=== PATIENT | male | born 1985 | race Caucasian/White ===

== ENCOUNTER 2017-02-23 18:08 | Emergency (ER) | payer OTHER ==
[2017-02-23 20:15] LABS: Basophils % (Auto) 1.5 % (0.0-1.8); Eosinophils % (Auto) 0.7 % (0.0-4.3); Hemoglobin 15.8 gm/dl (11.8-15.2); Mean Corpuscular HGB Conc 34 % (32-34); Mean Corpuscular Hemoglobin 31 pg (28-32); Mean Corpuscular Volume 89 fl (84-94); Platelet Count 236 K/mm3 (140-440); Red Blood Count 5.19 M/mm3 (3.65-5.03); Red Cell Distribution Width 13.9 % (13.2-15.2); White Blood Count 14.8 K/mm3 (4.5-11.0)
[2017-02-23 20:46] LABS: Anion Gap 20 mmol/L; Blood Urea Nitrogen 11 mg/dL (9-20); Carbon Dioxide 23 mmol/L (22-30); Chloride 102.3 mmol/L (98-107); Glucose 99 mg/dL (75-100); Potassium 3.9 mmol/L (3.6-5.0); Sodium 141 mmol/L (137-145)
[2017-02-23 23:20] LABS: Urine Drugs of Abuse Note Disclamer
[2017-02-23 23:51] LABS: Bilirubin,Urine NEG (Negative); Blood,Urine NEG (Negative); Ketones,Urine TR mg/dL (Negative); Leukocyte Esterase,Urine NEG (Negative); Mucus,Urine 2+ /HPF; Nitrite,Urine NEG (Negative); Urobilinogen,Urine < 2.0 mg/dL (<2.0)
--- NOTE | 2017-02-23 23:56 | Emergency Department Report ---
HPI - General Chief Complaint: Psych Time Seen by Provider: 02/23/17 23:10 - HPI HPI: This is a 31-year-old male presents to the emergency department with complaint of auditory hallucinations and suicidal ideations. He says that he has been feeling suicidal for about 24 hours but has been hearing voices for the past 10 years or so. However he denies any diagnosis psychiatric history. He says he would have a plan to overdose on something in order to harm himself. He denies any homicidal ideations or visual hallucinations. No recent travel or sick contacts at home. He denies any past medical history. ED Past Medical Hx - Past Medical History Previous Medical History?: Yes Hx Psychiatric Treatment: Yes - Social History Smoking Status: Current Every Day Smoker Substance Use Type: None ED Review of Systems ROS: Stated complaint: SUICIDAL THOUGHTS,HEARING VOICES Other details as noted in HPI Comment: All other systems reviewed and negative Constitutional: denies: chills, fever Eyes: denies: eye pain, eye discharge, vision change ENT: denies: ear pain, throat pain Respiratory: denies: cough, shortness of breath, wheezing Cardiovascular: denies: chest pain, palpitations Gastrointestinal: denies: abdominal pain, nausea, diarrhea Genitourinary: denies: urgency, dysuria Musculoskeletal: denies: back pain, joint swelling, arthralgia Skin: denies: rash, lesions Neurological: denies: headache, weakness, paresthesias Psychiatric: auditory hallucinations, suicidal thoughts. denies: visual hallucinations, homicidal thoughts Physical Exam - Physical Exam Vital Signs: Vital Signs 02/23/17 19:49 Temperature 98.6 F Pulse Rate 97 H Respiratory 18 Rate Blood Pressure 152/85 O2 Sat by Pulse 98 Oximetry Physical Exam: GENERAL: The patient is well-developed well-nourished. HENT: Normocephalic. Atraumatic. Patient has moist mucous membranes. EYES: Extraocular motions are intact. Pupils equal reactive to light bilaterally. NECK: Supple. Trachea is midline. CHEST/LUNGS: Clear to auscultation. There is no respiratory distress noted. HEART/CARDIOVASCULAR: Regular. There is no tachycardia. There is no gallop rub or murmur. ABDOMEN: Abdomen is soft, nontender. Patient has normal bowel sounds. There is no abdominal distention. SKIN: Skin is warm and dry. NEURO: The patient is awake, alert, and oriented. The patient is cooperative. The patient has no focal neurologic deficits. The patient has normal speech. MUSCULOSKELETAL: There is no tenderness or deformity. There is no limitation range of motion. There is no evidence of acute injury. ED Course Vital Signs 02/23/17 19:49 Temperature 98.6 F Pulse Rate 97 H Respiratory 18 Rate Blood Pressure 152/85 O2 Sat by Pulse 98 Oximetry ED Medical Decision Making - Lab Data Result diagrams: 02/23/17 19:59 02/23/17 19:59 - Medical Decision Making 31-year-old male presents with chronic auditory hallucinations and more recent suicidal ideations. For this reason he has been made a 1013. Vital signs stable throughout his ED course. He has a mild leukocytosis but it is most likely reactive versus infectious. He does have 11 white blood cells in the urine but there is negative leukocyte esterase and nitrates. The rest of the labs are mostly unremarkable. He appears medically cleared for psychiatric placement. - Differential Diagnosis schizophrenia, bipolar disorder, substance abuse Critical Care Time: No Critical care attestation.: If time is entered above; I have spent that time in minutes in the direct care of this critically ill patient, excluding procedure time. ED Disposition Clinical Impression: Suicidal ideations Disposition: [id number]/TX-65 PSY HOSP/PSY UNIT Is pt being admited?: No Condition: Stable Referrals: KEVON MILLER MD [Primary Care Provider] - 3-5 Days Time of Disposition: 01:48
--- NOTE | 2017-02-24 13:25 | Consultation ---
History of Present Illness - Reason for Consult Consult date: 02/24/17 Reason for consult: Mental Health Evaluation Requesting physician: MANI NARAYAN - Chief Complaint Chief complaint: "I hear voices" - History of Present Psychiatric Illness This is a 31-year-old male presents to the emergency department with complaint of auditory hallucinations and suicidal ideations. Today patient is calm and cooperative during the assessment. He stated that he hear voices to tell him to kill himself the last couple days. He stated that he been hearing "command voices" for the past 10 10 years. He stated that he moved here from [place], [place] and been homeless the entire time. When asked to elaborate about his SI's, he could not explain why other than saying, "The voices are telling me to kill myself." He endorses a suicide plan by overdose. He stated that he has attempted suicide in the past because of the "voices." He stated that he smoke marijuana for recreational purposes. He denies HI's and VH' s. He stated that his sleep have been erratic, but denies a poor appetite. He denies excessive alcohol consumption (etoh). Patient stated that he took Zyprexa and Depakote in the past. He stated that these medications "worked." Medications and Allergies Allergies Allergy/AdvReac Type Severity Reaction Status Date / Time No Known Allergies Allergy Unverified 02/23/17 19:49 Past psychiatric history - Past Medical History Past Medical History: No medical history Past Surgical History: No surgical history - past Psychiatric treatment and history Psych: Schizophrenia psychiatric treatment history: Multiple inpatient psy settings. Denies a fam psy hx. - Social History Social history: other (9th grade education) Mental Status Exam - Vital signs Last Vital Signs Temp 98.6 F 02/23/17 19:49 Pulse 97 H 02/23/17 19:49 Resp 18 02/23/17 19:49 BP 152/85 02/23/17 19:49 Pulse Ox 98 02/23/17 19:49 - Exam Narrative exam: ROS: (+) psychotic MSE: Appearance: calm, cooperative Behavior: regular eye contact Speech: regular rate and tone Mood: "not feeling well" Affect: labile Thought Process: circumstantial Thought Content: denies HI's, and VH's Motor Activity: ambulatory Cognition: A/O x3 Insight: limited Judgment: limited Results Result Diagrams: 02/23/17 19:59 02/23/17 19:59 Abnormal lab results 02/23/17 02/23/17 Range/Units 19:59 22:44 WBC 14.8 H (4.5-11.0) K/mm3 RBC 5.19 H (3.65-5.03) M/mm3 Hgb 15.8 H (11.8-15.2) gm/dl Hct 46.0 H (35.5-45.6) % Edwards % (Auto) 12.0 H (0.0-7.3) % Edwards # 1.8 H (0.0-0.8) K/mm3 Baso # 0.2 H (0.0-0.1) K/mm3 Seg Neutrophils # 8.5 H (1.8-7.7) K/mm3 Ur Specific [place] 1.031 H (1.003-1.030) Urine WBC (Auto) 11.0 H (0.0-6.0) /HPF All other labs normal. 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 Unspecified Mood DO with psychotic features. Substance Use DO (marijuana). Today patient is calm and cooperative during the assessment. Patient experiencing AH's. DDx: R/O Bipolar Recommendation/Plan: Continue 1013 with placement to inpatient psy services. Start Depakote 500 mg PO BID, Zyprexa 5 mg PO HS for mood/psychotic symptoms, and Cogentin 0.5 mg PO HS for EPS prevention.
[2017-02-24 16:37] LABS: Alanine Aminotransferase 26 units/L (7-56); Alkaline Phosphatase 69 units/L (35-129)
[2017-02-24] MEDS: COGENTIN PO SCH (22:23)
--- NOTE | 2017-02-25 13:30 | Progress Note ---
Subjective - Reason for Consult Consult date: 02/25/17 Reason for consult: Psychiatry Follow-up - Chief Complaint Chief complaint: "The voices" This is a 31-year-old male presents to the emergency department with complaint of auditory hallucinations and suicidal ideations. Today patient is calm and cooperative during the assessment. He stated that he want the voices to cease. He stated that the voices have always been an issue, but sometimes he can tolerate them. Per the patient, the voices decreases when his sleep isn't disturbed. He stated that he didn't sleep well last night because of the noise in the ER. He still endorses SI's with a plan to overdose. He denies HI's and VH's. He denies any side effects of his medications. Mental Status Exam - Vital signs Last Vital Signs Temp 98 F 02/24/17 19:51 Pulse 77 02/24/17 19:51 Resp 18 02/25/17 12:02 BP 103/68 02/24/17 19:51 Pulse Ox 99 02/25/17 12:02 - Exam Narrative exam: MSE: Appearance: calm, cooperative Behavior: regular eye contact Speech: regular rate and tone Mood: "okay" Affect: labile Thought Process: circumstantial Thought Content: denies HI's, and VH's Motor Activity: ambulatory Cognition: A/O x3 Insight: limited Judgment: limited Assessment and Plan Impression: Historical Dx: Schizophrenia vs Schizoaffective DO. Unspecified Mood DO with psychotic features. Substance Use DO (marijuana). Today patient is calm and cooperative during the assessment. Patient experiencing SI's and AH's. DDx: R/O Bipolar Recommendation/Plan: Continue 1013 with placement to inpatient psy services. Continue Depakote 500 mg PO BID, Zyprexa 5 mg PO HS for mood/psychotic symptoms , and Cogentin 0.5 mg PO HS for EPS prevention. Discussed possible metabolic side effects of Zyprexa with patient.
[2017-02-25] MEDS: COGENTIN PO SCH (21:53)
[2017-02-26] MEDS: COGENTIN PO SCH ×2 (14:02→22:18)
[2017-02-27] MEDS: COGENTIN PO SCH (23:49)
--- NOTE | 2017-02-28 13:24 | Progress Note ---
Subjective - Reason for Consult Consult date: 02/28/17 Reason for consult: Psychiatry Follow-up - Chief Complaint Chief complaint: "The voices have not stopped" This is a 31-year-old male presents to the emergency department with complaint of auditory hallucinations and suicidal ideations. Today patient is calm and cooperative during the assessment. He stated that the voices have not ceased. He stated that he was hearing voices earlier to today telling him to kill himself. Again, patient is adamant about wanting the voices to stop. He denies HI's and VH's. He denies sleep disturbance and a poor appetite. He denies any side effects of his medications. Mental Status Exam - Vital signs Last Vital Signs Temp 98.3 F 02/26/17 07:38 Pulse 87 02/28/17 10:14 Resp 17 02/28/17 10:14 BP 120/77 02/28/17 10:14 Pulse Ox 99 02/28/17 10:14 - Exam Narrative exam: MSE: Appearance: calm, cooperative Behavior: regular eye contact Speech: regular rate and tone Mood: "not well" Affect: labile Thought Process: circumstantial Thought Content: denies HI's, and VH's Motor Activity: ambulatory Cognition: A/O x3 Insight: limited Judgment: limited Assessment and Plan Impression: Historical Dx: Schizophrenia vs Schizoaffective DO. Unspecified Mood DO with psychotic features. Substance Use DO (marijuana). Today patient is calm and cooperative during the assessment. Patient experiencing SI's and AH's. DDx: R/O Bipolar Recommendation/Plan: Continue 1013 with placement to inpatient psy services. Continue Depakote 500 mg PO BID, and modify Zyprexa 5 mg PO BID for mood/ psychotic symptoms, and Cogentin 0.5 mg PO BID EPS prevention. Discussed possible metabolic side effects of Zyprexa with patient. VA level in the AM.
[2017-02-28] MEDS: COGENTIN PO SCH (22:08)
[2017-03-01 00:25] LABS: Hematocrit 43.5 % (35.5-45.6); Hemoglobin 14.8 gm/dl (11.8-15.2); Mean Corpuscular HGB Conc 34 % (32-34); Mean Corpuscular Hemoglobin 30 pg (28-32); Mean Corpuscular Volume 89 fl (84-94); Red Cell Distribution Width 13.5 % (13.2-15.2); White Blood Count 9.9 K/mm3 (4.5-11.0)
[2017-03-01 00:26] LABS: Platelet Count 226 K/mm3 (140-440)
[2017-03-01] MEDS: COGENTIN PO SCH ×3 (10:30→22:48)
--- NOTE | 2017-03-01 11:41 | Progress Note ---
Subjective - Reason for Consult Consult date: 03/01/17 Reason for consult: Psychiatry Follow-up - Chief Complaint Chief complaint: "The voices have ceased" This is a 31-year-old male presents to the emergency department with complaint of auditory hallucinations and suicidal ideations. Today patient is calm and cooperative during the assessment. He stated that the voices have "ceased." He stated getting rest and now the SI's are no longer active. He stated that he would like to be discharged with a referral for outpatient psy/rehab services. He stated that he will return to [facility] a local longterm. He denies SI/HI's and AVH's. He denies sleep disturbance and a poor appetite. He denies any side effects of his medications. Mental Status Exam - Vital signs Last Vital Signs Temp 97.3 F L 03/01/17 07:48 Pulse 74 03/01/17 07:48 Resp 18 03/01/17 07:48 BP 148/93 03/01/17 07:48 Pulse Ox 98 03/01/17 07:48 - Exam Narrative exam: MSE: Appearance: calm, cooperative Behavior: regular eye contact Speech: regular rate and tone Mood: "I feel better" Affect: congruent to mood Thought Process: circumstantial Thought Content: denies SI/HI's, and AVH's Motor Activity: ambulatory Cognition: A/O x3 Insight: variable Judgment: variable Assessment and Plan Impression: Historical Dx: Schizophrenia vs Schizoaffective DO. Unspecified Mood DO with psychotic features. Substance Use DO (marijuana). Today patient is calm and cooperative during the assessment. VA 65.4. DDx: R/O Bipolar Recommendation/Plan: Rescind 1013. Continue Depakote 500 mg PO BID, and modify Zyprexa 5 mg PO BID for mood/psychotic symptoms, and Cogentin 0.5 mg PO BID EPS prevention. Discussed possible metabolic side effects of Zyprexa with patient. Patient can follow-up with [facility] for outpatient psy/rehab services. Peer Financial Counselor involvement, patient will need transportation to [facility] a local longterm.
--- NOTE | 2017-03-01 22:51 | Emergency Department Report ---
Blank Doc - Documentation Documentation: This is a 31 years old male history of schizophrenia presents with acute psychosis being evaluated by mental health recommended to recent 1013 and discharged patient home to follow-up with his outpatient psychiatric. Patient is calm no auditory or visual hallucination O suicidal or homicidal ideation.
[2017-03-02 05:42] VITALS: BP 110/64
== END 2017-03-01 22:55 | disposition home or self-care (01) ==
LOC: ED 18:08 → EEVIPCON 18:08 → ED 03-01 22:55
DX: R45.851 Suicidal ideations (principal); R44.0 Auditory hallucinations; F17.200 Nicotine dependence, unspecified, uncomplicated
CPT/HCPCS: 36415; 80048; 80164; 80307; 81001; 84075; 84450; 84460; 85025; 85027; 99284; G0480; 80320; 99285